=== PATIENT | male | born 1975 | race Native Hawaiian/Other Pacific Islander ===

== ENCOUNTER 2017-05-21 06:20 | Day surgery (SDC) | payer BC ==
[2017-05-06 10:59] VITALS: BMI 29.1
[2017-05-21] MEDS ORDERED: Iodixanol 320 MG/ML 200 ML BOTTLE IV ONE (06:53)
[2017-05-21] MEDS ORDERED: Nitroglycerin 50mg in D5W 0 MG/0 ML BOTTLE IV ONE (06:53)
[2017-05-21] MEDS ORDERED: Iodixanol 320 MG/ML 100 ML BOTTLE IV ONE (06:53)
[2017-05-21] MEDS ORDERED: Phenylephrine 10 mg/ml Inj ONE (06:53)
[2017-05-21] MEDS ORDERED: Lidocaine 2% Inj (20ml) ONE (06:53)
[2017-05-21] MEDS ORDERED: Iohexol 350mgl/ml 50 ML ONE (06:53)
[2017-05-21 07:06] LABS: BASO # 0.03 K/mm3 (0.0-2.0); BASO % 0.5 % (0.0-3.0); EOS # 0.2 (0.0-0.7); GRAN # 3.28 (1.4-6.5); GRAN % 52.2 % (50.0-68.0); HEMATOCRIT 46.3 % (42.0-52.0); LYMPH # 2.5 (1.2-3.4); MEAN CELL VOLUME 91.7 fl (80.0-105.0); MEAN CORPUSCULAR HEMOGLOBIN 31.3 pg (25.0-35.0); MEAN CORPUSCULAR HGB CONC 34.1 g/dl (31.0-37.0); MEAN PLATELET VOLUME 8.9 fl (7.0-11.0); MONO # 0.3 (0.1-0.6); MONO % 5.3 % (1.0-6.0); RED CELL DISTRIBUTION WIDTH 12.9 % (11.5-14.5); WHITE BLOOD COUNT 6.3 10^3/ul (4.5-11.0)
[2017-05-21 07:11] LABS: INR 0.99 (0.93-1.08); PARTIAL THROMBOPLASTIN TIME 28.1 Seconds (25.1-36.5)
[2017-05-21 07:54] LABS: BLOOD UREA NITROGEN 18 mg/dL (7-21); CALCIUM 9.8 mg/dL (8.4-10.5); CARBON DIOXIDE 29 mmol/L (21-33); CHLORIDE 102 mmol/L (98-107); GFR AFRICAN-AMERICAN > 60; GLUCOSE,RANDOM 106 mg/dL (70-110); POTASSIUM 4.5 mmol/L (3.6-5.0); SODIUM 142 mmol/L (132-148)
[2017-05-21] MEDS ORDERED: Midazolam 2 MG/2 ML VIAL ONE ×2 (08:19→08:41)
[2017-05-21] MEDS ORDERED: Sodium Chloride 0.9% 1,000 ML IV SCH (09:00)
[2017-05-21 09:23] VITALS: TEMP 98.3
[2017-05-21 10:05] VITALS: RESP 18
--- NOTE | 2017-05-21 11:19 | CARDCATH ---
PROCEDURE DATE: 05/21/2017 HISTORY: The patient is a 42-year-old male who presents with exertional chest pain and shortness of breath. His cardiac risk factors include a strong family history for CAD, obesity, and hypercholesterolemia. A stress test revealed defect in the apex. Because of this, cardiac catheterization was recommended. PROCEDURE: Left heart catheterization with coronary arteriography and left ventriculogram. The right femoral artery was cannulated with a 6-Trinidadian sheath. I performed moderate sedation, which included the presence of an independent trained observer that assisted in the monitoring of the patient's level of consciousness and physiologic status. After administration of Versed and fentanyl, my intra service time was 15 minutes. The findings on catheterization revealed a left ventricle that contracted normally. Estimated ejection fraction of 60%. The coronary anatomy revealed a right dominant circulation. The RCA was unremarkable. Left main artery was unremarkable. The LAD and diagonal vessels revealed mild intimal irregularities without significant stenoses. The circumflex artery and obtuse marginal branches were free of significant disease. The patient tolerated the procedure well. Manual compression was used to close the femoral artery site. In summary, the procedure revealed intimal irregularities in his coronary tree with no critical lesions. LV function is normal. Given these findings, the patient needs to undergo cardiac risk reduction program, which includes weight loss, avoiding fatty foods as in his typical [place] diet. I have discussed this with the patient and family in detail. Jerome Lewis MD
[2017-05-21 14:44] VITALS: O2SAT 98
[2017-05-21 14:45] VITALS: BP 107/62; PULSE 68
--- NOTE | 2017-05-21 20:00 | CARD ---
APPROVED REPORT EKG Measurement Heart [id number] <Conclusion> Normal sinus rhythm Normal ECG
== END 2017-05-21 15:00 | disposition home or self-care (01) ==
LOC: CATH 06:20
PROVIDERS: ATTEND Internal Medicine Cardiovascular Disease
DX: R07.89 Other chest pain (principal); E78.00 Pure hypercholesterolemia, unspecified; R06.02 Shortness of breath; E66.9 Obesity, unspecified; Z68.29 Body mass index [BMI] 29.0-29.9, adult; Z82.49 Family history of ischemic heart disease and other diseases of the circulatory system
CPT/HCPCS: 36415; 80048; 85025; 85610; 85730; 86850; 86900; 93005; 93458; 99152; 99153; C1769; C2629; J1644; J2250; J7040 ×2